=== PATIENT | male | born 1960 | race African-American/Black ===

== ENCOUNTER 2017-07-06 17:28 | Inpatient (IN) | payer OTHER ==
[2017-07-06 18:09] VITALS: BMI 22.1
--- NOTE | 2017-07-06 18:25 | HP ---
COWS - Scale Resting Pulse: 2= [place] 101-120 Sweatin=Flushed/Facial Moisture Restless Observation: 1= Difficult to Sit Still Pupil Size: 2= Moderately Dilated Bone or Joint Aches: 2= Severe Diffuse Aches Runny Nose/ Eye Tearin= Runny Nose/Eyes GI Upset > 30mins: 2= Nausea/Diarrhea Tremor Observation: 2= Slight Tremor Visible Yawning Observation: 1= 1-2x During Session Anxiety or Irritability: 2=Irritable/Anxious Goose Flesh Skin: 0=Smooth Skin COWS Score: 18 CIWA Score - CIWA Score Nausea/Vomitin Muscle Tremors: 4-Moderate,w/Arms Extend Anxiety: 3 Agitation: 3 Paroxysmal Sweats: 3 Orientation: 2-Disoriented Date<2 days Tacttile Disturbances: 0-None Auditory Disturbances: 0-None Visual Disturbances: 0-None Headache: 0-None Present CIWA-Ar Total Score: 18 Admission ROS BHS - HPI Chief Complaint: Withdrawal sx. Allergies/Adverse Reactions: Allergies Allergy/AdvReac Type Severity Reaction Status Date / Time tuna fish Allergy Uncoded 07/06/17 18:19 History of Present Illness: 56 y/o man with a long hx. of heroin & alcohol dependence is admitted for detox. Pt. has been in previous detox,reports 3yrs. sobriety. Exam Limitations: No Limitations - Ebola screening Have you traveled outside of the country in the last 21 days: No (N) Have you had contact with anyone from an Ebola affected area: No Have you been sick,other than usual withdrawal symptoms: No Do you have a fever: No - Review of Systems Constitutional: Diaphoresis EENT: reports: Nose Congestion Respiratory: reports: Shortness of Breath (from smoking) Cardiac: reports: No Symptoms Reported GI: reports: Nausea, Abdominal cramping : reports: No Symptoms Reported Musculoskeletal: reports: Back Pain, Joint Pain Integumentary: reports: Sweating Neuro: reports: Tremors Endocrine: reports: No Symptoms Reported Hematology: reports: No Symptoms Reported Psychiatric: reports: No Sypmtoms Reported Other Systems: Reviewed and Negative Patient History - Patient Medical History Hx Anemia: No Hx Asthma: No Hx Chronic Obstructive Pulmonary Disease (COPD): No Hx Cancer: No Hx Cardiac Disorders: No Hx Congestive Heart Failure: No Hx Hypertension: No Hx Hypercholesterolemia: No Hx Pacemaker: No HX Cerebrovascular Accident: No Hx Seizures: No Hx Dementia: No Hx Diabetes: No Hx Gastrointestinal Disorders: No Hx Liver Disease: No Hx Genitourinary Disorders: No Hx Sexually Transmitted Disorders: No Hx Renal Disease (ESRD): No Hx Thyroid Disease: No Hx Human Immunodeficiency Virus (HIV): No Hx Hepatitis C: No Hx Depression: No Hx Suicide Attempt: No Hx Bipolar Disorder: Yes Hx Schizophrenia: No - Patient Surgical History Past Surgical History: Yes Hx Appendectomy: Yes Other Surgical History: tonsillectomy Anesthesia Reaction: No - PPD History Previous Implant?: Yes Documented Results: Negative w/o proof PPD to be Administered?: Yes - Smoking Cessation Smoking history: Current every day smoker Aproximately how many cigarettes per day: 12 Initiated information on smoking cessation: Yes 'Breaking Loose' booklet given: 07/06/17 - Substance & Tx. History Hx Alcohol Use: Yes Hx Substance Use: Yes Substance Use Type: Alcohol, Heroin, Tranquilizers Hx Substance Use Treatment: Yes (Detox) - Substances Abused Alcohol Route: Oral Frequency: Daily Amount used: Vodka 1 pint Age of first use: 18 Date of Last Use: 07/06/17 Alprazolam (Xanax) Frequency: 3-6 times per week Amount used: 4-6mg Age of first use: 48 Date of Last Use: 07/05/17 Heroin Route: Inhalation Frequency: Daily Amount used: 4-8 bags Age of first use: 27 Date of Last Use: 07/06/17 Family Disease History - Family Disease History Family Disease History: Diabetes: Mother (HTN), Heart Disease: Mother, Other: Father (Alcoholic) Admission Physical Exam [facility] - Vital Signs Vital Signs: Vital Signs - 24 hr 07/06/17 18:05 Temperature 98.2 F Pulse Rate 107 H Respiratory 18 Rate Blood Pressure 158/87 - Physical General Appearance: Yes: Tremorous, Irritable, Sweating, Anxious HEENTM: Yes: Nasal Congestion, Rhinorrhea Respiratory: Yes: Chest Non-Tender, Lungs Clear, Normal Breath Sounds Neck: Yes: Supple Breast: Yes: Breast Exam Deferred Cardiology: Yes: Regular Rhythm, Regular Rate, S1, S2 Abdominal: Yes: Normal Bowel Sounds, Non Tender, Flat, Soft Genitourinary: Yes: Within Normal Limits Back: Yes: Within Normal Limits Musculoskeletal: Yes: Within Normal Limits Extremities: Yes: Tremors Neurological: Yes: Fully Oriented, Alert Integumentary: Yes: Diaphoresis Lymphatic: Yes: Within Normal Limits - Diagnostic (1) Opioid dependence with withdrawal Current Visit: Yes Status: Acute (2) Alcohol dependence with uncomplicated withdrawal Current Visit: Yes Status: Acute (3) Sedative, hypnotic or anxiolytic dependence with withdrawal, uncomplicated Current Visit: Yes Status: Acute Cleared for Admission [facility] - Detox or Rehab [facility] Level of Care: Medically Managed Detox Regimen/Protocol: Methadone/Librium [facility] Breath Alcohol Content Breath Alcohol Content: 0 Urine Drug Screen - Results Drug Screen Negative: No Urine Drug Screen Results: OPI-Opiates, BZO-Benzodiazepines, MTD-Methadone, OXY- Oxycodone
[2017-07-06] MEDS ORDERED: P-EPHED 60MG/TRIPROLIDI 2.5MG TABLET PO PRN (18:32)
[2017-07-06] MEDS ORDERED: MAG HYDROX/AL HYDROX/SIMETH 30 ML UNIT-DOSE CUP PO PRN (18:32)
[2017-07-06] MEDS ORDERED: MENTHOL/PHENOL 1 EACH UD MM PRN (18:32)
[2017-07-06] MEDS ORDERED: chlordiazePOXIDE HCL 25 MG CAPSULE PO ONE (18:32)
[2017-07-06] MEDS ORDERED: METHADONE HCL 10 MG TABLET (FOR DETOX USE ONLY) PO ONE ×3 (18:32→23:00)
[2017-07-06] MEDS ORDERED: NICOTINE POLACRILEX 2 MG GUM BUC PRN (18:32)
[2017-07-06] MEDS ORDERED: ACETAMINOPHEN 325 MG TABLET (FP) PO PRN (18:32)
[2017-07-06] MEDS ORDERED: MAGNESIUM HYDROX 2400MG/30ML ORAL SUSPENSION 30 ML CUP PO PRN (18:32)
[2017-07-06] MEDS ORDERED: guaiFENesin/D-METHORPHAN HB 10 ML UNIT-DOSE CUPS PO PRN (18:32)
[2017-07-06] MEDS ORDERED: MAGNESIUM CITRATE 300 ML BOTTLE PO PRN (18:32)
[2017-07-06] MEDS ORDERED: LOPERAMIDE HCL 2 MG CAPSULE PO PRN (18:32)
[2017-07-06] MEDS: THIAMINE HCL 100 MG TABLET (FP) PO SCH (22:24)
[2017-07-06] MEDS: NICOTINE 21 MG/24 HOURS TOPICAL PATCH TD SCH (22:24)
[2017-07-06] MEDS: IBUPROFEN 400 MG TABLET (FP) PO PRN (22:47)
[2017-07-06] MEDS: chlordiazePOXIDE HCL 25 MG CAPSULE PO SCH (23:20)
[2017-07-07 00:42] LABS: URINE APPEARANCE TURBID; URINE BILIRUBIN NEGATIVE (NEGATIVE); URINE BLOOD NEGATIVE (NEGATIVE); URINE COLOR YELLOW; URINE GLUCOSE (UA) 1+ (NEGATIVE); URINE KETONE 1+ (NEGATIVE); URINE LEUK ESTERASE NEGATIVE (NEGATIVE); URINE NITRITE NEGATIVE (NEGATIVE); URINE PROTEIN 2+ (NEGATIVE); URINE UROBILINOGEN 4.0 E.U/dl mg/dL (0.2-1.0)
[2017-07-07 00:44] LABS: AMORP URATES MANY /hpf (NONE SEEN); EPI CELLS RARE /HPF (FEW); URINE BACTERIA RARE /hpf (NONE SEEN)
[2017-07-07] MEDS: chlordiazePOXIDE HCL 25 MG CAPSULE PO SCH ×4 (04:15→22:45)
[2017-07-07] MEDS: IBUPROFEN 400 MG TABLET (FP) PO PRN ×2 (06:14→12:33)
--- NOTE | 2017-07-07 09:44 | CONSULT ---
[facility] Psychiatric Consult - Data Date of interview: 07/07/17 Admission source: Self-referred Identifying data: Mr Lynch is a 56 years old single Black male, unemployed on SSI, living with family seeking detox treatment for alcohol, heroin ans xanax Substance Abuse History: Reports history of alcohol, heroin and xanax use. Refer to addiction counselor's note for further information Medical History: Significant for chronic back pain and history of surgery for removal of appendix and tonsils. smokes 12 cigarettes daily Psychiatric History: Reports history of Bipolar Disorder since 1985. Reports history of 4 previous psychiatric admissions to [facility] and most recently to [facility] in 2014. Reports total non adherence to OPD care but gets refills from walk-in clinic at [facility]. He is on Trazadone 100 mg po HS and Wellbutrin XL 150 mg po daily. Denies history of suicidal attempt. At present, reports feeling depressed, anxious and sleeping poorly Physical/Sexual Abuse/Trauma History: Denies history of verbal, physical or sexual abuse as well as DV relationship Additional Comment: Denies criminal history Mental Status Exam - Mental Status Exam Alert and Oriented to: Time, Place, Person Cognitive Function: Fair Patient Appearance: Well Groomed Mood: Depressed, Anxious Patient Behavior: Cooperative Speech Pattern: Clear Voice Loudness: Normal Thought Process: Intact, Goal Oriented Thought Disorder: Not Present Hallucinations: Denies Suicidal Ideation: Denies Homicidal Ideation: Denies Insight/Judgement: Poor Sleep: Poorly Appetite: Fair Muscle strength/Tone: Normal Gait/Station: Normal Psychiatric Findings - Problem List ([place] 1, 2,3) (1) Bipolar disorder Current Visit: Yes Status: Chronic (2) Substance induced mood disorder Current Visit: Yes Status: Acute (3) Substance-induced sleep disorder Current Visit: Yes Status: Acute (4) Alcohol dependence with uncomplicated withdrawal Current Visit: Yes Status: Acute (5) Opioid dependence with withdrawal Current Visit: Yes Status: Acute (6) Sedative, hypnotic or anxiolytic dependence with withdrawal, uncomplicated Current Visit: Yes Status: Acute - Initial Treatment Plan Initial Treatment Plan: 1) Continue Wellbutrin XL 150 mg po daily and Trazadone 100 mg po HS. 2) Continue inpatient detoxification
[2017-07-07] MEDS ORDERED: METHADONE HCL 10 MG TABLET (FOR DETOX USE ONLY) PO SCH (10:00)
[2017-07-07 10:43] LABS: HEMATOCRIT 37.7 % (35.4-49); HEMOGLOBIN 12.1 GM/dL (11.7-16.9); MCH 28.4 pg (25.7-33.7); MEAN CELL VOLUME 88.7 fl (80-96); MEAN PLT VOLUME 8.2 fl (7.5-11.1); PLATELET COUNT 195 K/MM3 (134-434); RBC 4.25 M/mm3 (4.00-5.60); RDW 12.6 % (11.9-15.9); WHITE BLOOD COUNT 4.4 K/mm3 (4.0-10.0)
[2017-07-07 10:51] LABS: ALBUMIN 3.2 g/dl (3.4-5.0); ANION GAP 6 (8-16); BLOOD UREA NITROGEN 9 mg/dL (7-18); CALCIUM 8.1 mg/dL (8.5-10.1); CHLORIDE 104 mmol/L (98-107); CO2 31 mmol/L (21-32); GLUCOSE,RANDOM 183 mg/dL (74-106); POTASSIUM 3.1 mmol/L (3.5-5.1); SGOT/AST 171 U/L (15-37); SGPT/ALT 130 U/L (12-78); SODIUM 141 mmol/L (136-145)
[2017-07-07 10:53] LABS: ALK PHOS 92 U/L (45-117); BILIRUBIN,TOTAL 0.6 mg/dL (0.2-1.0)
[2017-07-07] MEDS: PRENATAL VITAMINS W/ FOLIC ACID TABLET (FP) PO SCH (11:00)
[2017-07-07] MEDS: NICOTINE 21 MG/24 HOURS TOPICAL PATCH TD SCH (11:03)
--- NOTE | 2017-07-07 11:42 | EKG ---
Test Reason : Blood Pressure : / mmHG Vent. Rate : 100 BPM Atrial Rate : 100 BPM P-R Int : 168 ms QRS Dur : 094 ms QT Int : 358 ms P-R-T Axes : 075 076 053 degrees QTc Int : 461 ms NORMAL SINUS RHYTHM POSSIBLE LEFT ATRIAL ENLARGEMENT LEFT VENTRICULAR HYPERTROPHY ABNORMAL ECG NO PREVIOUS ECGS AVAILABLE Confirmed by MD MAYNOR, JOAQUINA ([id number]) on 07/07/2017 11:42:27 AM Referred By: Jere Milton Confirmed By:JOAQUINA MCGUIRE MD
--- NOTE | 2017-07-07 12:14 | PN ---
[facility] CIWA - CIWA Score Nausea/Vomitin-Mild Nausea/No Vomiting Muscle Tremors: 4-Moderate,w/Arms Extend Anxiety: 4-Mod. Anxious/Guarded Agitation: 4-Moderately Restless Paroxysmal Sweats: 1-Minimal Palms Moist Orientation: 0-Oriented Tacttile Disturbances: 0-None Auditory Disturbances: 0-None Visual Disturbances: 0-None Headache: 0-None Present CIWA-Ar Total Score: 14 S COWS - Scale Resting Pulse: 1= [place] 81-100 Sweatin= Chills/Flushing Restless Observation: 3= Extraneous Movement Pupil Size: 0= Normal to Room Light Bone or Joint Aches: 1= Mild Discomfort Runny Nose/ Eye Tearin= Nasal Congestion GI Upset > 30mins: 2= Nausea/Diarrhea Tremor Observation of Outstretched Hands: 1= Tremor [place], Not Seen Yawning Observation: 2= >3x During Session Anxiety or Irritability: 2=Irritable/Anxious Goose Flesh Skin: 0=Smooth Skin COWS Score: 14 S Progress Note (SOAP) Subjective: sweat tremor joint aches GI upset patient presented home medications of tamsulosin 0.4mg po hs + finasteride 5mg po daily filled on 07/02/[address] mary vela patient's own medication returned to property Objective: 07/07/17 12:10 Vital Signs Temperature 98.2 F 07/07/17 10:00 Pulse Rate 90 07/07/17 10:00 Respiratory Rate 18 07/07/17 10:00 Blood Pressure 147/98 07/07/17 10:00 O2 Sat by Pulse Oximetry (%) Laboratory Last Values WBC 4.4 K/mm3 (4.0-10.0) 07/07/17 07:30 RBC 4.25 M/mm3 (4.00-5.60) 07/07/17 07:30 Hgb 12.1 GM/dL (11.7-16.9) 07/07/17 07:30 Hct 37.7 % (35.4-49) 07/07/17 07:30 MCV 88.7 fl (80-96) 07/07/17 07:30 MCH 28.4 pg (25.7-33.7) 07/07/17 07:30 MCHC 32.0 g/dl (32.0-35.9) 07/07/17 07:30 RDW 12.6 % (11.9-15.9) 07/07/17 07:30 Plt Count 195 K/MM3 (134-434) 07/07/17 07:30 MPV 8.2 fl (7.5-11.1) 07/07/17 07:30 Sodium 141 mmol/L (136-145) 07/07/17 07:30 Potassium 3.1 mmol/L (3.5-5.1) L 07/07/17 07:30 Chloride 104 mmol/L (98-107) 07/07/17 07:30 Carbon Dioxide 31 mmol/L (21-32) 07/07/17 07:30 Anion Gap 6 (8-16) L 07/07/17 07:30 BUN 9 mg/dL (7-18) 07/07/17 07:30 Creatinine 1.0 mg/dL (0.7-1.3) 07/07/17 07:30 Creat Clearance w eGFR > 60 (>60) 07/07/17 07:30 Random Glucose 183 mg/dL (74-106) H 07/07/17 07:30 Calcium 8.1 mg/dL (8.5-10.1) L 07/07/17 07:30 Total Bilirubin 0.6 mg/dL (0.2-1.0) 07/07/17 07:30 AST 171 U/L (15-37) H 07/07/17 07:30 ALT 130 U/L (12-78) H 07/07/17 07:30 Alkaline Phosphatase 92 U/L (45-117) 07/07/17 07:30 Total Protein 7.0 g/dl (6.4-8.2) 07/07/17 07:30 Albumin 3.2 g/dl (3.4-5.0) L 07/07/17 07:30 Urine Color Yellow 07/06/17 23:30 Urine Appearance Turbid 07/06/17 23:30 Urine pH 5.0 (5.0-8.0) 07/06/17 23:30 Ur Specific [place] 1.029 (1.001-1.035) 07/06/17 23:30 Urine Protein 2+ (NEGATIVE) H 07/06/17 23:30 Urine Glucose (UA) 1+ (NEGATIVE) H 07/06/17 23:30 Urine Ketones 1+ (NEGATIVE) H 07/06/17 23:30 Urine Blood Negative (NEGATIVE) 07/06/17 23:30 Urine Nitrite Negative (NEGATIVE) 07/06/17 23:30 Urine Bilirubin Negative (NEGATIVE) 07/06/17 23:30 Urine Urobilinogen 4.0 e.u/dl mg/dL (0.2-1.0) 07/06/17 23:30 Ur Leukocyte Esterase Negative (NEGATIVE) 07/06/17 23:30 Urine WBC (Auto) None seen /hpf (3-5) 07/06/17 23:30 Urine RBC (Auto) None seen /hpf (0-3) 07/06/17 23:30 Ur Epithelial Cells Rare /HPF (FEW) 07/06/17 23:30 Amorphous Urates Many /hpf (NONE SEEN) 07/06/17 23:30 Urine Bacteria Rare /hpf (NONE SEEN) 07/06/17 23:30 RPR Titer Nonreactive (NONREACTIVE) 07/07/17 07:30 lab noted Assessment: 07/07/17 12:11 withdrawal sx Plan: continue detox
[2017-07-07] MEDS: chlordiazePOXIDE HCL 25 MG CAPSULE PO PRN (15:14)
[2017-07-07] MEDS: hydrOXYzine PAMOATE 50 MG CAPSULE (FP) PO PRN ×2 (17:52→22:45)
[2017-07-07] MEDS: THIAMINE HCL 100 MG TABLET (FP) PO SCH (22:45)
[2017-07-07] MEDS: traZODone HCL 100 MG TABLET (FP) PO SCH (22:45)
[2017-07-07] MEDS: TAMSULOSIN HCL 0.4 MG CAP.ER.24H (FP) PO SCH (22:45)
[2017-07-08] MEDS: chlordiazePOXIDE HCL 25 MG CAPSULE PO SCH ×3 (06:22→17:55)
[2017-07-08] MEDS: FINASTERIDE 5 MG TABLET (FP) PO SCH (10:30)
[2017-07-08] MEDS: METHADONE HCL 5 MG TABLET (FOR DETOX USE ONLY) PO SCH (10:30)
[2017-07-08] MEDS: PRENATAL VITAMINS W/ FOLIC ACID TABLET (FP) PO SCH (10:30)
[2017-07-08] MEDS: NICOTINE 21 MG/24 HOURS TOPICAL PATCH TD SCH (10:31)
[2017-07-08] MEDS: hydrOXYzine PAMOATE 50 MG CAPSULE (FP) PO PRN ×2 (12:53→16:53)
[2017-07-08] MEDS: IBUPROFEN 400 MG TABLET (FP) PO PRN (12:53)
--- NOTE | 2017-07-08 13:17 | PN ---
[facility] CIWA - CIWA Score Nausea/Vomitin Muscle Tremors: 3 Anxiety: 4-Mod. Anxious/Guarded Agitation: 4-Moderately Restless Paroxysmal Sweats: 2 Orientation: 0-Oriented Tacttile Disturbances: 0-None Auditory Disturbances: 0-None Visual Disturbances: 0-None Headache: 0-None Present CIWA-Ar Total Score: 16 BHS COWS - Scale Resting Pulse: 2= [place] 101-120 Sweatin= Chills/Flushing Restless Observation: 3= Extraneous Movement Pupil Size: 0= Normal to Room Light Bone or Joint Aches: 1= Mild Discomfort Runny Nose/ Eye Tearin= Nasal Congestion GI Upset > 30mins: 1= Stomach Cramp Tremor Observation of Outstretched Hands: 2= Slight Tremor Visible Yawning Observation: 0= None Anxiety or Irritability: 2=Irritable/Anxious Goose Flesh Skin: 0=Smooth Skin COWS Score: 13 S Progress Note (SOAP) Subjective: sleep disturbance anxious Objective: 07/08/17 13:14 pt noted ambulating steadily on unit irritable and anxious Vital Signs Temperature 98.0 F 07/08/17 10:43 Pulse Rate 107 H 07/08/17 10:43 Respiratory Rate 18 07/08/17 10:43 Blood Pressure 111/77 07/08/17 10:43 O2 Sat by Pulse Oximetry (%) Laboratory Last Values WBC 4.4 K/mm3 (4.0-10.0) 07/07/17 07:30 RBC 4.25 M/mm3 (4.00-5.60) 07/07/17 07:30 Hgb 12.1 GM/dL (11.7-16.9) 07/07/17 07:30 Hct 37.7 % (35.4-49) 07/07/17 07:30 MCV 88.7 fl (80-96) 07/07/17 07:30 MCH 28.4 pg (25.7-33.7) 07/07/17 07:30 MCHC 32.0 g/dl (32.0-35.9) 07/07/17 07:30 RDW 12.6 % (11.9-15.9) 07/07/17 07:30 Plt Count 195 K/MM3 (134-434) 07/07/17 07:30 MPV 8.2 fl (7.5-11.1) 07/07/17 07:30 Sodium 141 mmol/L (136-145) 07/07/17 07:30 Potassium 3.1 mmol/L (3.5-5.1) L 07/07/17 07:30 Chloride 104 mmol/L (98-107) 07/07/17 07:30 Carbon Dioxide 31 mmol/L (21-32) 07/07/17 07:30 Anion Gap 6 (8-16) L 07/07/17 07:30 BUN 9 mg/dL (7-18) 07/07/17 07:30 Creatinine 1.0 mg/dL (0.7-1.3) 07/07/17 07:30 Creat Clearance w eGFR > 60 (>60) 07/07/17 07:30 Random Glucose 183 mg/dL (74-106) H 07/07/17 07:30 Calcium 8.1 mg/dL (8.5-10.1) L 07/07/17 07:30 Total Bilirubin 0.6 mg/dL (0.2-1.0) 07/07/17 07:30 AST 171 U/L (15-37) H 07/07/17 07:30 ALT 130 U/L (12-78) H 07/07/17 07:30 Alkaline Phosphatase 92 U/L (45-117) 07/07/17 07:30 Total Protein 7.0 g/dl (6.4-8.2) 07/07/17 07:30 Albumin 3.2 g/dl (3.4-5.0) L 07/07/17 07:30 Urine Color Yellow 07/06/17 23:30 Urine Appearance Turbid 07/06/17 23:30 Urine pH 5.0 (5.0-8.0) 07/06/17 23:30 Ur Specific [place] 1.029 (1.001-1.035) 07/06/17 23:30 Urine Protein 2+ (NEGATIVE) H 07/06/17 23:30 Urine Glucose (UA) 1+ (NEGATIVE) H 07/06/17 23:30 Urine Ketones 1+ (NEGATIVE) H 07/06/17 23:30 Urine Blood Negative (NEGATIVE) 07/06/17 23: Urine Nitrite Negative (NEGATIVE) 07/06/17 23:30 Urine Bilirubin Negative (NEGATIVE) 07/06/17 23:30 Urine Urobilinogen 4.0 e.u/dl mg/dL (0.2-1.0) 07/06/17 23:30 Ur Leukocyte Esterase Negative (NEGATIVE) 07/06/17 23:30 Urine WBC (Auto) None seen /hpf (3-5) 07/06/17 23:30 Urine RBC (Auto) None seen /hpf (0-3) 07/06/17 23:30 Ur Epithelial Cells Rare /HPF (FEW) 07/06/17 23:30 Amorphous Urates Many /hpf (NONE SEEN) 07/06/17 23:30 Urine Bacteria Rare /hpf (NONE SEEN) 07/06/17 23:30 RPR Titer Nonreactive (NONREACTIVE) 07/07/17 07:30 labs noted Assessment: 07/08/17 13:16 withdrawal sx hypopotassemia hyperglycemia Plan: continue detox supplemetal potassium increase fluids, monitor blood glucose
[2017-07-08] MEDS: POTASSIUM CHLORIDE ORAL LIQUID 20 MEQ/15 ML PO SCH ×2 (14:14→23:36)
[2017-07-08] MEDS: chlordiazePOXIDE HCL 25 MG CAPSULE PO PRN (15:44)
[2017-07-08] MEDS: THIAMINE HCL 100 MG TABLET (FP) PO SCH (23:35)
[2017-07-08] MEDS: TAMSULOSIN HCL 0.4 MG CAP.ER.24H (FP) PO SCH (23:36)
[2017-07-08] MEDS: chlordiazePOXIDE 5 MG CAPSULE PO SCH (23:36)
[2017-07-08] MEDS: traZODone HCL 100 MG TABLET (FP) PO SCH (23:36)
[2017-07-09] MEDS: chlordiazePOXIDE 5 MG CAPSULE PO SCH ×3 (05:34→17:32)
[2017-07-09] MEDS: hydrOXYzine PAMOATE 50 MG CAPSULE (FP) PO PRN ×2 (06:26→15:01)
--- NOTE | 2017-07-09 10:23 | PN ---
BHS Progress Note (SOAP) Subjective: sweat anxiety general body ache restlessness agitation patient reports that completed detox from [facility] on 07/03/17 allow using own denture cream at the [facility] Objective: 07/09/17 10:25 Vital Signs Temperature 97.7 F 07/09/17 09:54 Pulse Rate 80 07/09/17 09:54 Respiratory Rate 18 07/09/17 09:54 Blood Pressure 127/82 07/09/17 09:54 O2 Sat by Pulse Oximetry (%) Laboratory Last Values WBC 4.4 K/mm3 (4.0-10.0) 07/07/17 07:30 RBC 4.25 M/mm3 (4.00-5.60) 07/07/17 07:30 Hgb 12.1 GM/dL (11.7-16.9) 07/07/17 07:30 Hct 37.7 % (35.4-49) 07/07/17 07:30 MCV 88.7 fl (80-96) 07/07/17 07:30 MCH 28.4 pg (25.7-33.7) 07/07/17 07:30 MCHC 32.0 g/dl (32.0-35.9) 07/07/17 07:30 RDW 12.6 % (11.9-15.9) 07/07/17 07:30 Plt Count 195 K/MM3 (134-434) 07/07/17 07:30 MPV 8.2 fl (7.5-11.1) 07/07/17 07:30 Sodium 141 mmol/L (136-145) 07/07/17 07:30 Potassium 3.1 mmol/L (3.5-5.1) L 07/07/17 07:30 Chloride 104 mmol/L (98-107) 07/07/17 07:30 Carbon Dioxide 31 mmol/L (21-32) 07/07/17 07:30 Anion Gap 6 (8-16) L 07/07/17 07:30 BUN 9 mg/dL (7-18) 07/07/17 07:30 Creatinine 1.0 mg/dL (0.7-1.3) 07/07/17 07:30 Creat Clearance w eGFR > 60 (>60) 07/07/17 07:30 Random Glucose 183 mg/dL (74-106) H 07/07/17 07:30 Calcium 8.1 mg/dL (8.5-10.1) L 07/07/17 07:30 Total Bilirubin 0.6 mg/dL (0.2-1.0) 07/07/17 07:30 AST 171 U/L (15-37) H 07/07/17 07:30 ALT 130 U/L (12-78) H 07/07/17 07:30 Alkaline Phosphatase 92 U/L (45-117) 07/07/17 07:30 Total Protein 7.0 g/dl (6.4-8.2) 07/07/17 07:30 Albumin 3.2 g/dl (3.4-5.0) L 07/07/17 07:30 Urine Color Yellow 07/06/17 23:30 Urine Appearance Turbid 07/06/17 23:30 Urine pH 5.0 (5.0-8.0) 07/06/17 23:30 Ur Specific [place] 1.029 (1.001-1.035) 07/06/17 23:30 Urine Protein 2+ (NEGATIVE) H 07/06/17 23:30 Urine Glucose (UA) 1+ (NEGATIVE) H 07/06/17 23:30 Urine Ketones 1+ (NEGATIVE) H 07/06/17 23:30 Urine Blood Negative (NEGATIVE) 07/06/17 23:30 Urine Nitrite Negative (NEGATIVE) 07/06/17 23:30 Urine Bilirubin Negative (NEGATIVE) 07/06/17 23:30 Urine Urobilinogen 4.0 e.u/dl mg/dL (0.2-1.0) 07/06/17 23:30 Ur Leukocyte Esterase Negative (NEGATIVE) 07/06/17 23:30 Urine WBC (Auto) None seen /hpf (3-5) 07/06/17 23:30 Urine RBC (Auto) None seen /hpf (0-3) 07/06/17 23:30 Ur Epithelial Cells Rare /HPF (FEW) 07/06/17 23:30 Amorphous Urates Many /hpf (NONE SEEN) 07/06/17 23:30 Urine Bacteria Rare /hpf (NONE SEEN) 07/06/17 23:30 RPR Titer Nonreactive (NONREACTIVE) 07/07/17 07:30 lab noted Assessment: 07/09/17 10:28 withdrawal sx Plan: continue detox
[2017-07-09] MEDS: METHADONE HCL 5 MG TABLET (FOR DETOX USE ONLY) PO SCH (10:51)
[2017-07-09] MEDS: PRENATAL VITAMINS W/ FOLIC ACID TABLET (FP) PO SCH (10:51)
[2017-07-09] MEDS: FINASTERIDE 5 MG TABLET (FP) PO SCH (10:52)
[2017-07-09] MEDS: POTASSIUM CHLORIDE ORAL LIQUID 20 MEQ/15 ML PO SCH ×2 (10:52→22:17)
[2017-07-09] MEDS: NICOTINE 21 MG/24 HOURS TOPICAL PATCH TD SCH (10:52)
[2017-07-09] MEDS: IBUPROFEN 400 MG TABLET (FP) PO PRN (10:56)
[2017-07-09] MEDS: chlordiazePOXIDE HCL 25 MG CAPSULE PO PRN (15:01)
[2017-07-09] MEDS ORDERED: cloNIDine HCL 0.1 MG TABLET PO ONE (21:59)
[2017-07-09] MEDS: THIAMINE HCL 100 MG TABLET (FP) PO SCH (22:18)
[2017-07-09] MEDS: traZODone HCL 100 MG TABLET (FP) PO SCH (22:18)
[2017-07-09] MEDS: TAMSULOSIN HCL 0.4 MG CAP.ER.24H (FP) PO SCH (22:18)
[2017-07-09] MEDS: chlordiazePOXIDE HCL 10 MG CAPSULE PO SCH (22:18)
[2017-07-10] MEDS: chlordiazePOXIDE HCL 10 MG CAPSULE PO SCH ×3 (05:57→17:45)
[2017-07-10] MEDS ORDERED: POTASSIUM CHLORIDE TABS 20 MEQ TABLET.ER (FP) PO SCH (10:00)
[2017-07-10] MEDS ORDERED: METHADONE HCL 10 MG TABLET (FOR DETOX USE ONLY) PO SCH (10:00)
[2017-07-10] MEDS: PRENATAL VITAMINS W/ FOLIC ACID TABLET (FP) PO SCH (10:22)
[2017-07-10] MEDS: FINASTERIDE 5 MG TABLET (FP) PO SCH (10:23)
[2017-07-10] MEDS: NICOTINE 21 MG/24 HOURS TOPICAL PATCH TD SCH (10:26)
[2017-07-10] MEDS ORDERED: POTASSIUM CHLORIDE ORAL LIQUID 20 MEQ/15 ML PO ONE (10:52)
--- NOTE | 2017-07-10 11:48 | PN ---
BHS Progress Note (SOAP) Subjective: ALERT,IRRITABLE,ANXIOUS,INTERRUPTED SLEEP,PAIN IN THE BODY Objective: 07/10/17 11:46 Vital Signs Temperature 98.1 F 07/10/17 10:00 Pulse Rate 82 07/10/17 10:00 Respiratory Rate 20 07/10/17 10:00 Blood Pressure 126/76 07/10/17 10:00 O2 Sat by Pulse Oximetry (%) Laboratory Last Values WBC 4.4 K/mm3 (4.0-10.0) 07/07/17 07:30 RBC 4.25 M/mm3 (4.00-5.60) 07/07/17 07:30 Hgb 12.1 GM/dL (11.7-16.9) 07/07/17 07:30 Hct 37.7 % (35.4-49) 07/07/17 07:30 MCV 88.7 fl (80-96) 07/07/17 07:30 MCH 28.4 pg (25.7-33.7) 07/07/17 07:30 MCHC 32.0 g/dl (32.0-35.9) 07/07/17 07:30 RDW 12.6 % (11.9-15.9) 07/07/17 07:30 Plt Count 195 K/MM3 (134-434) 07/07/17 07:30 MPV 8.2 fl (7.5-11.1) 07/07/17 07:30 Sodium 141 mmol/L (136-145) 07/07/17 07:30 Potassium 3.1 mmol/L (3.5-5.1) L 07/07/17 07:30 Chloride 104 mmol/L (98-107) 07/07/17 07:30 Carbon Dioxide 31 mmol/L (21-32) 07/07/17 07:30 Anion Gap 6 (8-16) L 07/07/17 07:30 BUN 9 mg/dL (7-18) 07/07/17 07:30 Creatinine 1.0 mg/dL (0.7-1.3) 07/07/17 07:30 Creat Clearance w eGFR > 60 (>60) 07/07/17 07:30 Random Glucose 183 mg/dL (74-106) H 07/07/17 07:30 Calcium 8.1 mg/dL (8.5-10.1) L 07/07/17 07:30 Total Bilirubin 0.6 mg/dL (0.2-1.0) 07/07/17 07:30 AST 171 U/L (15-37) H 07/07/17 07:30 ALT 130 U/L (12-78) H 07/07/17 07:30 Alkaline Phosphatase 92 U/L (45-117) 07/07/17 07:30 Total Protein 7.0 g/dl (6.4-8.2) 07/07/17 07:30 Albumin 3.2 g/dl (3.4-5.0) L 07/07/17 07:30 Urine Color Yellow 07/06/17 23:30 Urine Appearance Turbid 07/06/17 23:30 Urine pH 5.0 (5.0-8.0) 07/06/17 23:30 Ur Specific [place] 1.029 (1.001-1.035) 07/06/17 23:30 Urine Protein 2+ (NEGATIVE) H 07/06/17 23:30 Urine Glucose (UA) 1+ (NEGATIVE) H 07/06/17 23:30 Urine Ketones 1+ (NEGATIVE) H 07/06/17 23:30 Urine Blood Negative (NEGATIVE) 07/06/17 23:30 Urine Nitrite Negative (NEGATIVE) 07/06/17 23:30 Urine Bilirubin Negative (NEGATIVE) 07/06/17 23:30 Urine Urobilinogen 4.0 e.u/dl mg/dL (0.2-1.0) 07/06/17 23:30 Ur Leukocyte Esterase Negative (NEGATIVE) 07/06/17 23:30 Urine WBC (Auto) None seen /hpf (3-5) 07/06/17 23:30 Urine RBC (Auto) None seen /hpf (0-3) 07/06/17 23:30 Ur Epithelial Cells Rare /HPF (FEW) 07/06/17 23:30 Amorphous Urates Many /hpf (NONE SEEN) 07/06/17 23:30 Urine Bacteria Rare /hpf (NONE SEEN) 07/06/17 23:30 RPR Titer Nonreactive (NONREACTIVE) 07/07/17 07:30 K IS 3.1 Assessment: 07/10/17 11:47 WITHDRAWAL SYMPTOM Plan: CONTINUE DETOX,HYPOKALEMIA,KCL 20 MEQ PO BID FOR REPLACEMENT,BGM MONITORING INITIAL GLUCOSE IN 183
--- NOTE | 2017-07-10 11:50 | PN ---
BHS Progress Note Note: PATIENT REFUSED TO TAKE KCL,CONSEQUENCE EXPLAINED,REPEAT CMP IN AM,BGM MONITORING,D/C TYLENOL
[2017-07-10] MEDS: hydrOXYzine PAMOATE 50 MG CAPSULE (FP) PO PRN ×2 (14:51→19:02)
[2017-07-10] MEDS ORDERED: POTASSIUM CHLORIDE ORAL LIQUID 20 MEQ/15 ML PO SCH (22:00)
[2017-07-10 22:23] VITALS: BP 134/99; PULSE 95; TEMP 97.7
[2017-07-10] MEDS: TAMSULOSIN HCL 0.4 MG CAP.ER.24H (FP) PO SCH (23:46)
[2017-07-10] MEDS: THIAMINE HCL 100 MG TABLET (FP) PO SCH (23:46)
[2017-07-10] MEDS: traZODone HCL 100 MG TABLET (FP) PO SCH (23:46)
[2017-07-11] MEDS ORDERED: METHADONE HCL 5 MG TABLET (FOR DETOX USE ONLY) PO SCH (06:00)
--- NOTE | 2017-07-11 19:19 | DS ---
[facility] Detox Discharge Summary Admission Date: 07/06/17 Discharge Date: 07/11/17 - History Present History: Alcohol Dependence, Opioid Dependence, Sedative Dependence Additional Comments: PATIENT GOING TO [facility] ([place] [place] FOR AFTERCARE. PATIENT WAS DISCHARGED FROM DETOX UNIT IN STABLE MEDICAL CONDITION. Pertinent Past History: Bipolar Disorder, Hypokalemia. - Physical Exam Results Vital Signs: Vital Signs Temperature 97.7 F 07/10/17 22:00 Pulse Rate 95 H 07/10/17 22:00 Respiratory Rate 18 07/11/17 03:38 Blood Pressure 134/99 07/10/17 22:00 O2 Sat by Pulse Oximetry (%) Pertinent Admission Physical Exam Findings: WITHDRAWAL SYMPTOMS. Laboratory Tests 07/06/17 07/07/17 07/07/17 23:30 07:30 07:30 WBC 4.4 RBC 4.25 Hgb 12.1 Hct 37.7 MCV 88.7 MCH 28.4 MCHC 32.0 RDW 12.6 Plt Count 195 MPV 8.2 Sodium 141 Potassium 3.1 L Chloride 104 Carbon Dioxide 31 Anion Gap 6 L BUN 9 Creatinine 1.0 Creat Clearance w eGFR > 60 POC Glucometer Random Glucose 183 H Calcium 8.1 L Total Bilirubin 0.6 AST 171 H ALT 130 H Alkaline Phosphatase 92 Total Protein 7.0 Albumin 3.2 L Urine Color Yellow Urine Appearance Turbid Urine pH 5.0 Ur Specific [place] 1.029 Urine Protein 2+ H Urine Glucose (UA) 1+ H Urine Ketones 1+ H Urine Blood Negative Urine Nitrite Negative Urine Bilirubin Negative Urine Urobilinogen 4.0 e.u/dl Ur Leukocyte Esterase Negative Urine WBC (Auto) None seen Urine RBC (Auto) None seen Ur Epithelial Cells Rare Amorphous Urates Many Urine Bacteria Rare RPR Titer 07/07/17 07/10/17 07:30 16:31 WBC RBC Hgb Hct MCV MCH MCHC RDW Plt Count MPV Sodium Potassium Chloride Carbon Dioxide Anion Gap BUN Creatinine Creat Clearance w eGFR POC Glucometer 133 Random Glucose Calcium Total Bilirubin AST ALT Alkaline Phosphatase Total Protein Albumin Urine Color Urine Appearance Urine pH Ur Specific [place] Urine Protein Urine Glucose (UA) Urine Ketones Urine Blood Urine Nitrite Urine Bilirubin Urine Urobilinogen Ur Leukocyte Esterase Urine WBC (Auto) Urine RBC (Auto) Ur Epithelial Cells Amorphous Urates Urine Bacteria RPR Titer Nonreactive LABS NOTED. - Treatment Hospital Course: Detox Protocol Followed, Detoxed Safely, Responded well, Discharged Condition Good, Rehab Referral Accepted Patient has Accepted a Rehab Referral to: [facility] ([facility] - Medication Discharge Medications: Ambulatory Orders Bupropion HCl [Wellbutrin -] 07/06/17 Trazodone HCl 100 mg PO HS 07/06/17 Finasteride [Proscar -] 5 mg PO DAILY 07/07/17 Tamsulosin HCl [Flomax] 0.4 mg PO HS 07/07/17 - Diagnosis (1) Alcohol dependence with uncomplicated withdrawal Status: Acute (2) Opioid dependence with withdrawal Status: Acute (3) Sedative, hypnotic or anxiolytic dependence with withdrawal, uncomplicated Status: Acute (4) Substance induced mood disorder Status: Acute (5) Substance-induced sleep disorder Status: Acute (6) Bipolar disorder Status: Chronic Qualifiers: Active/Remission status: remission status unspecified Qualified Code(s): F31.9 - Bipolar disorder, unspecified (7) Hypokalemia Status: Acute - AMA Did Patient Leave Against Medical Advice: No
== END 2017-07-11 09:11 | disposition home or self-care (01) | DRG 773 ==
LOC: YASAS 17:28 → Y6N 18:35 → Y3N 07-10 23:41
PROVIDERS: ADMIT Internal Medicine; ATTEND Internal Medicine
PROC: HZ2ZZZZ Detoxification Services for Substance Abuse Treatment (ICD-10-PCS; principal; 2017-07-06)
DX: F11.23 Opioid dependence with withdrawal (principal); F13.230 Sedative, hypnotic or anxiolytic dependence with withdrawal, uncomplicated; F10.230 Alcohol dependence with withdrawal, uncomplicated; F19.24 Other psychoactive substance dependence with psychoactive substance-induced mood disorder; F19.282 Other psychoactive substance dependence with psychoactive substance-induced sleep disorder; F31.9 Bipolar disorder, unspecified; E87.6 Hypokalemia
CPT/HCPCS: 36415; 80053; 81003; 81015; 82962; 85027; 86593; 93005; 93010; J0735